=== PATIENT | male | born 1970 | race Caucasian/White ===

== ENCOUNTER 2019-05-29 01:17 | Outpatient (CLI) | payer BC, SELFPAY ==
--- NOTE | 2019-05-29 07:00 | DI.NM_ITS ---
APPROVED REPORT Exam: Exercise Treadmill Patient Location: Out-Patient Room/Bed: Stress Nurse: Felicia Rosenthal RN BMI: 29.53 Baseline Rhythm: Sinus Bradycardia Indications: Patient reports within the past year he has had 2 episodes of chest tightness (lasted ap proximately 10 ??? 15 minutes and went away with rest) associated with lightheadedness. He states the chest tightness feels like a ???belt around ribs and someone pulled on it???. ???Every once in a whi le I feel angina like symptoms???. Medical History Medical History: Anxiety, Depression Cardiac Medications: Aspirin Allergies: Procaine, Animal Dander Cardiac Risk Factors: FHX of CAD, Hyperlipidemia, Asthma Previous Cardiac Procedures: None Pretest Chest Pain Characteristics: None Exercise History: Physically active Physical Disabilities: None Lung Sounds: Clear to auscultation Heart Sounds: Regular Stress Test Details Test: Exercise stress testing was performed using a Devang protocol. Nuclear Acquisition: Stress Tc-99m/Stress Tc-99m 1 day Rest Isotope: Tc-99m Sestamibi. Dose: 10.9 Date: 05/29/2019 Injection Time: 0845 Stress Isotope: Tc-99m Sestamibi. Dose: 32.8 Date: 05/29/2019 Injection Time: 1020 HR Resting HR Supine: 57 bpm Max Heart Rate (APMHR): 171 bpm Resting HR Standin bpm Target HR (85% APMHR): 145 bpm Max HR Achieved: 154 bpm % of APMHR: 90 HR response to stress: Normal HR response to stress BP Resting BP Supine: 138/90 mmHg Resting BP Standin/90 mmHg Max BP: 180/100 mmHg BP response to stress: Normal blood pressure response to stress. ECG Resting ECG: Sinus Bradycardia Stress ECG: Sinus Tachycardia ST Change: No significant ST segment changes noted. Arrhythmia: None Recovery ECG: Sinus Rhythm Recovery ST Change: No significant ST segment changes noted. Recovery Arrhythmia: None Clinical Reason for Termination: Fatigue Stress Symptoms: None Exercise duration: 12 min5 sec Highest Stage Reached: Stage 4: 4.2 mph at 16% grade. Exercise capacity: 13.53 METs Functional Capacity: Average Capacity Stress ECG Conclusion 1. The patient exercised for 12 minutes (14 METS). Exercise was stopped due to fatigue. Rate-pressu re product was 27,000. 2. There is no evidence of ischemia on the ECG portion of this exam. Protocol Used: Devang Protocol Stress Test Summary STAGE Time (mins) Speed (mph) Grade (%) HR BP SYMPTOMS METS Supine 57 138/90 Standing 66 130/90 1 3 1.7 10 94 134/78 4.6 2 6 2.5 12 111 130/80 7 3 9 3.4 14 122 150/90 10.2 4 12 4.2 16 154 180/100 12.9 5 15 5.0 18 17.2 1 min recovery 103 140/90 3 min recovery 83 146/90 6 min recovery 77 140/90 MPI Conclusion Ejection fraction was 43%. There were no wall motion abnormalities. There is no evidence of ischemia on the imaging portion of this exam. This represents a normal SPECT imaging test.
[2019-05-29 12:43] LABS: HCT 43.9 % (40.0-50.0); HGB 14.7 g/dL (13.5-17.5); Mean Corp. HGB Concentration 33.5 g/dL (32.0-36.0); Mean Corpuscular Hemoglobin 29.5 pg (27.0-33.0); Mean Corpuscular Volume 88.2 fL (80-95); Mean Platelet Volume 9.7 fL (8.0-11.0); Platelet Count 284 x1000/uL (130-400); RBC 4.98 m/cumm (4.50-6.00); RBC Distribution Width 12.9 % (11.8-14.1); White Blood Cell Count 6.19 k/cumm (4.4-10.8)
[2019-05-29 13:48] LABS: ALT 33 U/L (16-63); AST 16 U/L (15-37); Albumin 4.1 g/dL (3.4-5.0); Alkaline Phosphatase 56 U/L (46-116); Anion Gap 7.6 mmol/L (3-11); BUN 13 mg/dL (7-18); Bilirubin, Total 0.4 mg/dL (0.2-1.0); CO2 28.4 mmol/L (21.0-32.0); CREATININE 0.84 mg/dL (0.70-1.30); Calcium 9.6 mg/dL (8.5-10.1); Calculated LDL 169 mg/dL (<100); Chloride 104 mmol/L (98-107); Cholesterol 231 mg/dL (<200); Glucose 92 mg/dL (74-106); HDL Cholesterol 40 mg/dL (40-60); Potassium 4.7 mmol/L (3.5-5.1); Sodium 140 mmol/L (136-145); TSH (W/Ref FT4) 1.19 uIU/mL (0.36-3.74); Total Protein 7.4 g/dL (6.4-8.2); Triglyceride 113 mg/dL (<150)
== END 2019-05-29 01:37 ==
PROVIDERS: PCP Family Medicine; Visit Provider Family Medicine
DX: R07.89 Other chest pain (principal); R07.2 Precordial pain; E78.5 Hyperlipidemia, unspecified; F41.8 Other specified anxiety disorders; G47.00 Insomnia, unspecified; Z82.49 Family history of ischemic heart disease and other diseases of the circulatory system
CPT/HCPCS: 36415; 78452; 80053; 80061; 85027; 84443; 93017

== ENCOUNTER 2020-06-03 10:14 | Day surgery (SDC) | payer BC, SELFPAY ==
--- NOTE | 2020-06-03 06:41 | W.COLOREPORT ---
Date of service: 06/03/20 Time of Service: 11:48 Colonoscopy Report Date of procedure: 06/03/20 Pre-op diagnosis general: Colon Cancer Screening Post-op diagnosis procedure note: other (colorectal polyps and mild diverticulosis) Procedure: Colonoscopy with polypectomy Surgeon: Cathy Roth Anesthesia proc note operative: other (General/ASA 2/Eh Parrish, OLIVER) Estimated blood loss (mL): 3 Pathology: other (cecal polyp, ascending polyp. Transverse polyp) Complications: None Disposition: same day Indications: The patient is here for Colonoscopy pre-op. He has no family history of colon cancer. He has not had any bowel habit changes. -Discussed colonoscopy bowel prep as well as the procedure. Discussed possible complications of the procedure to include bleeding, pain, perforation, missed small lesion/polyp, sore throat, aspiration and adverse reaction to the medications. Questions were answered to patient?s satisfaction. No guarantees were implied or given. Prep: Miralax/Dulcolax Procedure Start Time: 11:48 Procedure End Time: 12:11 Retraction Time: 16 minutes Findings: 3 small polyps Procedure Description: After informed consent was obtained the patient was taken to the procedure room and placed in a left decubitous position. Monitors were applied and a time out was done. The patients name, date of , procedure, allergies to medications and metal in their body was reviewed. The patient was then sedated. Once sedated and comfortable a rectal exam was done. External exam was normal. Internal exam revealed a normal sphincter tone and no palpable masses. The prostate felt smooth. The scope was then introduced and retro-flexed. No internal hemorrhoids, polyps or masses were identified on retro-flexion. The scope was then advanced to the cecum without difficulty. The ileocecal vlave and appendiceal orifice were identified. The prep was adequate. The scope was then slowly retracted over 16 minutes back into the rectum. Polyps were removed with cold forceps in the cecum, ascending and transverse colon. There was mild diverticulosis noted in the sigmoid colon. The scope was removed and the patient was woken up and taken back to Same day surgery in stable condition. The patient tolerated the procedure well and there were no immediate complications. Follow up: The patient should follow up in 3-5 years unless they develop changes in bowel habits or other new gastrointestinal complaints.
--- NOTE | 2020-06-03 06:42 | W.PM.DSUDISC ---
Discharge Plan Disposition Patient Disposition: HOME Condition: Good Discharge Details Reason For Visit: Colonoscopy Attending Provider: Cathy Roth Primary Care Provider: Matthew Duggan Home Meds and New Rx's Prescriptions: Continued Advil PM Liqui-Gels 200-25 mg capsule 1 cap PO QHS RF: 0 sildenafil [Viagra] 50 mg tablet 50 mg PO DAILY PRN (Reason: sexual activity) Qty: 20 RF: 5 albuterol sulfate [Ventolin HFA] 90 mcg/actuation HFA aerosol inhaler 2 puff IH Q4H PRN (Reason: shortness of breath or wheezing) Qty: 8.5 RF: 0 (DME) Aerochamber MV Spacer See Rx Instructions .ROUTE .MEDSUPPLY Qty: 1 RF: 0 Discontinued polyethylene glycol 3350 17 gram/dose powder 238 g PO ONCE Qty: 238 RF: 0 bisacodyl [Dulcolax (bisacodyl)] 5 mg tablet,delayed release (DR/EC) 5 mg PO ONCE Qty: 4 RF: 0 No Action diphenhydramine-acetaminophen [Tylenol PM Extra Strength] 25-500 mg Tablet 1 tab PO QHS PRNRF: 0 Discharge Instructions Instructions: Colorectal Polyps (DC), Diverticulosis (DC) Additional Instructions: Findings: 3 small polyps mild diverticulosis Follow up: depends on final pathology Please call if you develop: fevers >101.5 Nausea or Vomiting Abdominal pain that is not transient DAY SURGERY UNIT POST ENDOSCOPY INSTRUCTIONS 1. Because there will be medication in your system for the next 24 hours, you may feel a little sleepy. Your coordination will be affected. Therefore: a. Do not drive or operate dangerous equipment for 24 hours. b. Do not drink alcohol beverages for 24 hours (not even beer). c. Plan to go home and rest for the day. 2. Generally there are no restrictions on your activity after a day or so has gone by, but you may feel a bit fatigued for a few days. 3 After you arrive home you may have a light meal and return to a normal diet as you can tolerate it without feeling sick to your stomach. 4. After surgery, you may feel pain or discomfort. This should be only transient, but if it persists please contact your doctor. 5. If there are any questions regarding the findings of your procedure, please feel free to contact your doctor. 6. If you are unable to contact your doctor with a problem, contact the hospital at [phone]. 7. Continue all your regular medications unless directed otherwise. I understand the above instructions and have no questions. Signature of Patient or Responsible Adult Escort Date/Time Name of Responsible Adult Escort Signature of Nurse Date/Time Activity:: Activity as Tolerated Diet:: As Tolerated Discharge Orders Discharge Orders: Discharge Order (Routine); Ordered 06/03/20 Ordered By: Cathy Roth
[2020-06-03 10:35] VITALS: BP 135/93; PULSE 69; RESP 18; TEMP 36.6; O2SAT 98
[2020-06-03] MEDS: Lactated Ringers 1,000 ML 80 ML IV (10:55)
--- NOTE | 2020-06-03 11:54 | BOWEL_PTH ---
PATIENT: Ernie Perez LOC: [facility] U#:[id number] AGE/SX: 49/M ROOM: RE06/03/[address]: Cathy Roth MD : [id number] BED: DIS: 06/03/2020 SPEC #: [id number] RECD: 06/03/20 17:16 STATUS: RIGOBERTO REQ #: [id number] ADAMA: 06/03/20 11:[address]: Cathy Roth DEPT: Surgical Specimen RECD BY: Ivette Christianson ENTERED: 06/03/20 17:16 SP TYPE: Bowel OTHR DR: Matthew Duggan MD Tissues: 1 - BIOPSY BOWEL 2 - BIOPSY BOWEL 3 - BIOPSY BOWEL Procedures: GROSS AND MICRO LEVEL 4 Comments: [id number]
[2020-06-03 13:00] VITALS: BP 129/93; PULSE 66; RESP 16; TEMP 36.4; O2SAT 98
== END 2020-06-03 13:26 | disposition home or self-care (01) ==
LOC: SUR 10:14
PROVIDERS: PCP Family Medicine; Visit Provider Surgery
PROC: 0DJD8ZZ Inspection of Lower Intestinal Tract, Via Natural or Artificial Opening Endoscopic (ICD-10-PCS; CPT 45378; principal; 2020-06-03 10:45)
DX: Z12.11 Encounter for screening for malignant neoplasm of colon (principal); D12.2 Benign neoplasm of ascending colon; D12.3 Benign neoplasm of transverse colon; F41.9 Anxiety disorder, unspecified; J45.909 Unspecified asthma, uncomplicated
CPT/HCPCS: 45380; 88305; J2001; J2704

== ENCOUNTER 2020-11-11 15:32 | Outpatient (CLI) | payer BC, SELFPAY ==
--- NOTE | 2020-11-11 14:00 | DI.RAD_ITS ---
Exam(s) XR KNEE LT 4V AP,LAT,YAHAIRA,PAT EXAM: XR KNEE LT 4V AP,LAT,YAHAIRA,PAT CLINICAL HISTORY: bilateral knee pain. TECHNIQUE: 2D digital imaging was performed. COMPARISON: CR XR KNEE RT 4V AP,LAT,YAHAIRA,PAT from 11/11/2020 FINDINGS: No evidence of left knee joint fracture although there does appear to be a joint effusion. Prominent inferior pole the patella is noted as is calcification at the insertion site of the quadriceps tendo n on the anterosuperior patella. There are no obvious degenerative changes in the medial and lateral compartments nor in the patellofe moral compartment. Fabella is noted posterolaterally and a small benign bone island in the anterior tibial plateau. IMPRESSION: No obvious degenerative changes. Small joint effusion. DATA REPOSITORY: RADIATION DOSE DELIVERED:
--- NOTE | 2020-11-11 14:00 | DI.RAD_ITS ---
Exam(s) XR KNEE RT 4V AP,LAT,YAHAIRA,PAT EXAM: XR KNEE RT 4V AP,LAT,YAHAIRA,PAT CLINICAL HISTORY: bilateral knee pain. TECHNIQUE: 2D digital imaging was performed. COMPARISON: No exams were available for comparison FINDINGS: There is no evidence fracture. There is small joint effusion. Also calcification at the insertion o f the quadriceps on the anterosuperior patella. Also some prepatellar soft tissue swelling noted. T he medial lateral compartments exhibit normal height. Patellofemoral compartment unremarkable. IMPRESSION: DATA REPOSITORY: RADIATION DOSE DELIVERED:
== END 2020-11-11 15:33 | disposition home or self-care (01) ==
LOC: DIORS 15:32
PROVIDERS: PCP Nurse Practitioner Family; Referring Provider Nurse Practitioner Family; Visit Provider Student in an Organized Health Care Education/Training Program
DX: M25.561 Pain in right knee (principal); M25.562 Pain in left knee; M25.462 Effusion, left knee; M25.461 Effusion, right knee
CPT/HCPCS: 73564

== ENCOUNTER 2020-12-04 01:39 | Outpatient (CLI) | payer BC, SELFPAY ==
--- NOTE | 2020-12-04 10:40 | DI.MRI_ITS ---
Exam(s) MR LOWER JOINT RT WO EXAM: MR LOWER JOINT RT WO CLINICAL HISTORY: RT KNEE PAIN,M25.561 TECHNIQUE: Multiplanar multisequence MRI of the knee was performed. COMPARISON: CR XR KNEE RT 4V AP,LAT,YAHAIRA,PAT from 11/11/2020 CR XR KNEE LT 4V AP,LAT,YAHAIRA,PAT from 11/11/2020 CR XR KNEE RT 4V AP,LAT,YAHAIRA,PAT from 11/11/2020 CR XR KNEE LT 4V AP,LAT,YAHAIRA,PAT from 11/11/2020 FINDINGS: EFFUSION: There is small joint effusion. There is no Torres cyst in the popliteal fossa MARROW:There is no evidence of fracture, bone contusion, nor osteochondral defects.. There are no si gnificant osseous lesions. PATELLOFEMORAL COMPARTMENT: The quadriceps tendon is intact. The patellar ligament is intact. There is a small focal fissure in the retropatellar cartilage over the mid facet level, this not asso ciated with subjacent intraosseous signal abnormality in the posterior patella.There is no intraosseo us signal to suggest recent patellar dislocation. There are no patellar retinacular tears. CRUCIATE LIGAMENTS: The anterior cruciate ligament is intact.The posterior cruciate ligament is intac t. There is a focal fluid collection associated with the superior half of the ACL an adjacent to the mid aspect of the PCL, this measuring 11 millimeters craniocaudal by 8 millimeters AP by 9 millimete rs wide. Consistent with a non septated intra-articular ganglion cyst at this level. MEDIAL COMPARTMENT/MEDIAL MENISCUS: There is a complex tear of the posterior horn of the medial menis cus, predominantly oblique nature and with mild extrusion. The meniscal root appears intact. No buc ket-handle configuration. No obvious tear of the anterior horn.Mild meniscocapsular separation. The re is signal abnormality at the junction of the torn meniscus and MCL. However, there is no high-gra de MCL tear.. There are no chondral defects, osteochondral defects, subarticular marrow edema, nor osteophytes evid ent. MEDIAL COLLATERAL LIGAMENT: As above. LATERAL COMPARTMENT/LATERAL MENISCUS: There is no evidence of lateral meniscal tear.There are no anuja dral defects, osteochondral defects, subarticular marrow edema, nor osteophytes evident. ILIOTIBIAL BAND: Intact LATERAL COLLATERAL LIGAMENT COMPLEX: The fibular collateral ligament is intact. The biceps femoris t endon is intact.Popliteus muscle and tendon are intact. IMPRESSION: 1. Main finding here is a predominantly oblique tear of the posterior horn of the medial meniscus wit h mild outward extrusion and mild meniscocapsular separation. No bucket-handle configuration. The m eniscal root is intact, as does the anterior horn. No prominent degenerative changes in the hyaline cartilage of the medial compartment. No osteochondral defects. 2. There are no tears of the lateral meniscus nor degenerative changes in the lateral compartment 3. There is an 8 x 11 x 9 millimeter fluid collection associated with the upper aspect of the ACL whi ch appears somewhat focal (although intimately related with the generalized joint effusion here). Ho wever, this may represent a para ACL ganglion cyst. There is no obvious tear of the ACL itself and t he PCL appears intact. 4. There is a small focal fissure in the central aspect of the retropatellar cartilage. Otherwise on ly mild cartilage thinning. No abnormal intraosseous signal evident in the subjacent patella. Bqihl-vmqyiwbb-gtzcq joint effusion. DATA REPOSITORY:
== END 2020-12-04 01:59 ==
PROVIDERS: PCP Nurse Practitioner Family; Visit Provider Student in an Organized Health Care Education/Training Program
DX: M25.561 Pain in right knee (principal); M25.461 Effusion, right knee; S83.241A Other tear of medial meniscus, current injury, right knee, initial encounter; M94.8X6 Other specified disorders of cartilage, lower leg
CPT/HCPCS: 73721

== ENCOUNTER 2021-05-27 08:14 | Outpatient (CLI) | payer BC, SELFPAY ==
[2021-05-27 08:44] LABS: Source Nasal/Nares
[2021-05-27 09:23] LABS: COVID-19 PCR Negative (Negative)
== END 2021-05-27 08:15 | disposition home or self-care (01) ==
LOC: LBN 08:15
PROVIDERS: PCP Nurse Practitioner Family; Visit Provider Student in an Organized Health Care Education/Training Program
DX: Z20.822 Contact with and (suspected) exposure to COVID-19 (principal); Z01.818 Encounter for other preprocedural examination
CPT/HCPCS: 87635

== ENCOUNTER 2021-05-27 11:00 | Day surgery (SDC) | payer BC, SELFPAY ==
[2021-05-27] VITALS (8 sets, daily range): BP systolic 116–136; BP diastolic 73–91; PULSE 66–75; RESP 14–19; TEMP 36.2–37; O2SAT 95–97; BMI 32.1
--- NOTE | 2021-05-27 06:23 | W.ANESPRE ---
General Info Date of Service Date Performed: 05/27/21 Height: 5 ft 9 in Weight: 98.883 kg Body Mass Index (BMI): 32.1 Surgical Procedure: Operation Date: 05/27/21 13:40 Proposed Procedure Side Surgeon p Knee Arthroscopy partial medial menisectomy Right Alan Baird MD Meds Allergies and Home Medications Allergies Allergy/AdvReac Type Severity Reaction Status Date / Time procaine [From Novocain] Allergy Mild Verified 05/27/21 11:29 animal dander Allergy Uncoded 05/27/21 11:29 Home Medication Medication Instructions Recorded ibuprofen 200 mg-diphenhydramine 1 cap PO QHS 05/09/19 HCl 25 mg capsule (Advil PM Liqui-Gels) albuterol sulfate 90 mcg/actuation 2 puff IH Q4H PRN #8.5 gm 06/29/19 aerosol inhaler (Ventolin HFA) inhalational spacing device #1 each 06/29/19 (Aerochamber MV) diphenhydramine 25 1 tab PO QHS PRN 06/03/20 mg-acetaminophen 500 mg tablet (Tylenol PM Extra Strength) sildenafil 50 mg tablet (Viagra) 50 mg PO DAILY PRN #20 tab 01/08/21 acetaminophen 500 mg capsule 1,000 mg PO Q8H PRN PRN #30 cap 05/27/21 ibuprofen 600 mg tablet 600 mg PO TID #30 tab 05/27/21 oxycodone 5 mg tablet 5 mg PO Q4H PRN #7 tab 05/27/21 Current Visit Medications: Current Medications Generic Name Dose Route Start Last Admin Trade Name Ramosq PRN Reason Stop Dose Admin Ringer's Solution 1,000 mls @ 80 mls/hr 05/27/21 06:00 IV 06/25/21 23:59 INFUSION SHAHAB Cefazolin Sodium/Dextrose 2 gm in 50 mls @ 100 mls/hr 05/27/21 06:00 Ancef Duplex IVPB 06/25/21 23:59 PREOP SHAHAB IV Miscellaneous Supplies 1 each 05/27/21 06:00 Iv Access IV 06/25/21 23:59 DIRECTED SHAHAB Sodium Chloride 0 ml 05/27/21 06:00 Normal Saline Flush 10 Ml Syr IV 06/25/21 23:59 PRN PRN Sodium Chloride 0 ml 05/27/21 06:00 Normal Saline 10 Ml Vial IJ 06/25/21 23:59 DIRECTED PRN Sterile Water 0 ml 05/27/21 06:00 Water,Injection,Sterile 10 Ml Vial IJ 06/25/21 23:59 DIRECTED PRN PFSH Active Problems Active Problems: Problem Status Onset Code Tendinitis of left quadriceps tendon M76.892 Left knee pain M25.562 Complex tear of medial meniscus of right knee S83.231A Chondromalacia of patella, 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 Knee pain, bilateral M25.561, M25.562 Hyperlipidemia E78.5 Family history of myocardial infarction in first degree male relative Z82.49 H/O retrosternal chest pain Z87.898 Insomnia G47.00 Elevated LDL cholesterol level E78.00 Erectile dysfunction N52.9 Dysplastic nevus Cutaneous skin tags L91.8 Seborrheic keratoses L82.1 Screening for colon cancer Z12.11 Asthma, mild J45.909 Anxiety F41.9 Surgical History Surgical History History of vasectomy Hx of inguinal hernia surgery Tobacco Smoking/Tobacco Use Status: Former Tobacco Use Second hand exposure: No Alcohol Alcohol Intake: current Alcohol intake frequency: a few times a week Alcohol type: beer Substance Use Substance use: Rarely Substance use type: marijuana Details: edible Vital Signs and Lab Results Vital Signs Most Recent Vital Signs in EMR: Temp Pulse Resp BP Pulse Ox 37.0 C 70 18 136/86 97 05/27/21 11:18 05/27/21 11:18 05/27/21 11:18 05/27/21 11:18 05/27/21 11:18 Lab Results Blood Type / Crossmatch: No Data to Display Complete Blood Count: No Data to Display Complete Metabolic Panel: No Data to Display Liver Function Panel: No Data to Display Coagulation Panel: No Data to Display Cardiac Panel: No Data to Display Arterial Blood Gas: No Data to Display Venous Blood Gas: No Data to Display Pancreas Panel: No Data to Display Thyroid Panel: No Data to Display Infectious Disease: Coronavirus (COVID-19)(PCR) Negative (Negative) 05/27/21 08:37 05/27/21 Coronavirus 2019 Source Nasal/Nares 05/27/21 08:37 05/27/21 Blood Cultures: No Data to Display Toxicology Panel: No Data to Display Imaging and Studies Imaging and Studies Study information below may be from another EMR and interpreted by another provider. Please see original notes in EMR for more complete details. Stress Test Summary: 06/15: 14 METS, no evidence of ischemia, EF 43%, no WMA, no perfusion defects. Anesthesia Assessment and Plan Anesthesia History Personal History: No History of Anesthesia Complications Family History: No Family History of Anesthesia Complications Exercise Tolerance Exercise Tolerance: Metabolic Equivalents>4 Cardiac & Pulmonary Exam Cardiac Exam: Normal S1/S2 Heart Sounds Pulmonary Exam: Clear Bilateral Breath Sounds Implantable Cardiac Device Does patient have a Pacemaker or an ICD?: No Airway Exam Known Difficult Airway: No Mallampati Class: 1 Mouth Opening: Normal (> 3cm) Thyromental Distance: Greater than 3 cm Neck Range of Motion: Full ROM Neck Circumference: Normal Teeth Condition: Normal Dentition ASA Classification ASA Score: ASA 2 Emergency Case?: No NPO Status NPO Status: NPO Clears >2 hours, Solids >8 hours Anesthesia Plan Resuscitation Status: Full Code Anesthesia Technique: General Anesthesia Airway Planned: LMA Monitors Used: Standard Monitors Preoperative Comments:: 50 yo male for knee arthroscopy. Sig PMHx: asthma (albuterol), anxiety, former smoker, occ EtOH.
--- NOTE | 2021-05-27 08:38 | HPE_ITS ---
Documented by User: ELIZABETH Ferrara 05/27/21 11:43 Assessment and Plan Assessment and plan (1) Complex tear of medial meniscus of right knee: Status: Acute Assessment and plan: Ernie is a 50 year old male who presents today with continued right knee pain. ? Has undergone MRI imaging and previous office visits with Dr. Baird confirming a complex medial meniscal tear.? Dr Baird in December 2020 recommended arthroscopic partial medial meniscectomy. Xray imaging with minimal arthritic changes. I personally saw the patient in the [facility] waiting area. Denies chest pain, palpitations, SOB, N/V/D, changes in urinary frequency or blood in her urine. Denies history of cardiac events, respiratory events requiring hospitalizations or intubation, renal or liver disorders, hepatitis, diabetes, immunologic or thyroid disorders. Auscultation of the heart: regular rate and rhythm, S1, S2 appreciated without murmurs gallops or rubs. Lungs: Right upper, middle, lower lobes; Left upper, lower lobes; clear to auscultation bilaterally without wheezes, rales or rhonchi. After a review of the presented information and risks the patient was given the opportunity to ask questions, all of which were answered to satisfaction. Ernie elects to proceed. We will plan to proceed with scheduled procedure. Qualifiers: Encounter type: subsequent encounter Tear current or old: current Qualified Code(s): S83.231D - Complex tear of medial meniscus, current injury, right knee, subsequent encounter History of Present Illness History of Present Illness Chief Complaint: Right Knee Pain PFSH All Active Problems Tendinitis of left quadriceps tendon (Acute) Left knee pain (Acute) Complex tear of medial meniscus of right knee (Acute) Chondromalacia of patella, right (Acute) Knee pain, bilateral (Acute) Hyperlipidemia (Acute) Family history of myocardial infarction in first degree male relative (Acute) H/O retrosternal chest pain (Acute) Insomnia (Acute) Elevated LDL cholesterol level (Acute) Erectile dysfunction (Acute) Dysplastic nevus (Acute) Cutaneous skin tags (Acute) Seborrheic keratoses (Acute) Screening for colon cancer (Acute) Asthma, mild (Acute) Anxiety (Chronic) Surgical History History of vasectomy Hx of inguinal hernia surgery Family History Mother No problems noted. Father , age 84 Liver cancer Diabetes Brother Alcohol abuse Heart disease Brother Hypertension Son No problems noted. Son No problems noted. Social History (Updated 06/21/20 @ 14:34 by Sanam Valentin) Smoking/Tobacco Use Status: Former Tobacco Use Quit Date: 03/29/01 Tobacco: How many years used: 5 Second Hand Exposure: No Smoking risk assessment performed?: Yes Alcohol Intake: current Alcohol Intake frequency: a few times a week Alcohol type: beer Drug use: Rarely Substance use type: marijuana Details: edible, last used one week ago. Caregiver/Support person: No Household members: spouse and children Housing: house Pets and animals: Yes Pets and animals: dog(s) Sexually active: Yes Do you think of yourself as: straight/heterosexual Current gender identity: male What is your relationship status?: How often do you talk on the phone with friends or family?: three or more times per week How often do you get together with friends or relatives?: once per week How often do you attend mandaeism or scientologist services?: decline to answer Do you belong to any clubs or organized social groups?: no Panel score (0-1 are the most socially isolated patients): 2 What type of physical activity do you participate in: running Duration: < 15 minutes/day Frequency: 1-2 times per week Loraine/Restorationist: None Special loraine needs: No Seatbelt use: always Helmet use: Yes Helmet use: always Drive intox or ride w/intox ross carrier driver: No Do you feel safe at home: Yes Do you feel safe in your relationship?: Yes Meds Allergies and Home Medications Allergies Allergy/AdvReac Type Severity Reaction Status Date / Time procaine [From Novocain] Allergy Mild Verified 05/27/21 11:29 animal dander Allergy Uncoded 05/27/21 11:29 Home Medications Medication Instructions Recorded Confirmed Type ibuprofen 200 mg-diphenhydramine 1 cap PO QHS 05/09/19 05/27/21 History HCl 25 mg capsule (Advil PM Liqui-Gels) albuterol sulfate 90 mcg/actuation 2 puff IH Q4H PRN #8.5 gm 06/29/19 05/27/21 Rx aerosol inhaler (Ventolin HFA) inhalational spacing device #1 each 06/29/19 01/13/21 Rx (Aerochamber MV) diphenhydramine 25 1 tab PO QHS PRN 06/03/20 05/27/21 History mg-acetaminophen 500 mg tablet (Tylenol PM Extra Strength) sildenafil 50 mg tablet (Viagra) 50 mg PO DAILY PRN #20 tab 01/08/21 05/27/21 Rx acetaminophen 500 mg capsule 1,000 mg PO Q8H PRN PRN #30 cap 05/27/21 Rx ibuprofen 600 mg tablet 600 mg PO TID #30 tab 05/27/21 Rx oxycodone 5 mg tablet 5 mg PO Q4H PRN #7 tab 05/27/21 Rx Documented by User: Alan Baird MD 05/27/21 12:41 Assessment and Plan Assessment and plan (1) Complex tear of medial meniscus of right knee: Status: Acute Assessment and plan: Ernie is a 50 year old male who presents today with continued right knee pain. ? Has undergone MRI imaging and previous office visits with Dr. Baird confirming a complex medial meniscal tear.? Dr Baird in December 2020 recommended arthroscopic partial medial meniscectomy. Xray imaging with minimal arthritic changes. I personally saw the patient in the [facility] waiting area. Denies chest pain, palpitations, SOB, N/V/D, changes in urinary frequency or blood in her urine. Denies history of cardiac events, respiratory events requiring hospitalizations or intubation, renal or liver disorders, hepatitis, diabetes, immunologic or thyroid disorders. Auscultation of the heart: regular rate and rhythm, S1, S2 appreciated without murmurs gallops or rubs. Lungs: Right upper, middle, lower lobes; Left upper, lower lobes; clear to auscultation bilaterally without wheezes, rales or rhonchi. After a review of the presented information and risks the patient was given the opportunity to ask questions, all of which were answered to satisfaction. Ernie elects to proceed. We will plan to proceed with scheduled procedure. I interviewed and examined the patient with Kenna Shen PA-C. I agree with the documentation as above. The assessment and plan were formulated with my direct involvement. Ernie has a known medial meniscal tear of his right knee. He has failed nonoperative treatment options and is here today for knee arthroscopy with meniscal intervention. I reviewed the risk of the surgery with him to include bleeding, infection, pain, stiffness, damage to nerves and vessels, damage to muscle tendons, continued pain, worsening arthritis, retear, blood clot. Despite these risk, he elects to proceed. Alan Baird MD [facility]OS [facility] Qualifiers: Encounter type: subsequent encounter Tear current or old: current Qualified Code(s): S83.231D - Complex tear of medial meniscus, current injury, right knee, subsequent encounter [facility] All Active Problems Tendinitis of left quadriceps tendon (Acute) Left knee pain (Acute) Complex tear of medial meniscus of right knee (Acute) Chondromalacia of patella, right (Acute) Knee pain, bilateral (Acute) Hyperlipidemia (Acute) Family history of myocardial infarction in first degree male relative (Acute) H/O retrosternal chest pain (Acute) Insomnia (Acute) Elevated LDL cholesterol level (Acute) Erectile dysfunction (Acute) Dysplastic nevus (Acute) Cutaneous skin tags (Acute) Seborrheic keratoses (Acute) Screening for colon cancer (Acute) Asthma, mild (Acute) Anxiety (Chronic) Surgical History History of vasectomy Hx of inguinal hernia surgery Family History Mother No problems noted. Father , age 84 Liver cancer Diabetes Brother Alcohol abuse Heart disease Brother Hypertension Son No problems noted. Son No problems noted. Social History (Updated 06/21/20 @ 14:34 by Sanam Valentin) Smoking/Tobacco Use Status: Former Tobacco Use Quit Date: 03/29/01 Tobacco: How many years used: 5 Second Hand Exposure: No Smoking risk assessment performed?: Yes Alcohol Intake: current Alcohol Intake frequency: a few times a week Alcohol type: beer Drug use: Rarely Substance use type: marijuana Details: edible, last used one week ago. Caregiver/Support person: No Household members: spouse and children Housing: house Pets and animals: Yes Pets and animals: dog(s) Sexually active: Yes Do you think of yourself as: straight/heterosexual Current gender identity: male What is your relationship status?: How often do you talk on the phone with friends or family?: three or more times per week How often do you get together with friends or relatives?: once per week How often do you attend mandaeism or scientologist services?: decline to answer Do you belong to any clubs or organized social groups?: no Panel score (0-1 are the most socially isolated patients): 2 What type of physical activity do you participate in: running Duration: < 15 minutes/day Frequency: 1-2 times per week Loraine/Restorationist: None Special loraine needs: No Seatbelt use: always Helmet use: Yes Helmet use: always Drive intox or ride w/intox ross carrier driver: No Do you feel safe at home: Yes Do you feel safe in your relationship?: Yes Meds Allergies and Home Medications Allergies Allergy/AdvReac Type Severity Reaction Status Date / Time procaine [From Novocain] Allergy Mild Verified 05/27/21 11:29 animal dander Allergy Uncoded 05/27/21 11:29 Home Medications Medication Instructions Recorded Confirmed Type ibuprofen 200 mg-diphenhydramine 1 cap PO QHS 05/09/19 05/27/21 History HCl 25 mg capsule (Advil PM Liqui-Gels) albuterol sulfate 90 mcg/actuation 2 puff IH Q4H PRN #8.5 gm 06/29/19 05/27/21 Rx aerosol inhaler (Ventolin HFA) inhalational spacing device #1 each 06/29/19 01/13/21 Rx (Aerochamber MV) diphenhydramine 25 1 tab PO QHS PRN 06/03/20 05/27/21 History mg-acetaminophen 500 mg tablet (Tylenol PM Extra Strength) sildenafil 50 mg tablet (Viagra) 50 mg PO DAILY PRN #20 tab 01/08/21 05/27/21 Rx acetaminophen 500 mg capsule 1,000 mg PO Q8H PRN PRN #30 cap 05/27/21 Rx ibuprofen 600 mg tablet 600 mg PO TID #30 tab 05/27/21 Rx oxycodone 5 mg tablet 5 mg PO Q4H PRN #7 tab 05/27/21 Rx
--- NOTE | 2021-05-27 08:45 | PDOC.DSDIS_ITS ---
Discharge Plan Disposition Patient Disposition: HOME Condition: Stable Discharge Details Reason For Visit: Right Knee Arthroscopy Attending Provider: Alan Baird Primary Care Provider: Car Garcia Home Meds and New Rx's Prescriptions: New ibuprofen 600 mg tablet 600 mg PO TID Qty: 30 0RF acetaminophen 500 mg capsule 1,000 mg PO Q8H PRN PRNQty: 30 0RF oxycodone 5 mg tablet 5 mg PO Q4H PRNQty: 7 0RF Continued Advil PM Liqui-Gels 200-25 mg capsule 1 cap PO QHS 0RF albuterol sulfate [Ventolin HFA] 90 mcg/actuation HFA aerosol inhaler 2 puff IH Q4H PRN (Reason: shortness of breath or wheezing) Qty: 8.5 0RF (DME) Aerochamber MV Spacer See Rx Instructions .ROUTE .MEDSUPPLY Qty: 1 0RF Rx Instructions: As directed sildenafil [Viagra] 50 mg tablet 50 mg PO DAILY PRN (Reason: sexual activity) Qty: 20 5RF Rx Instructions: administer 30 minutes to 4 hours before activity diphenhydramine-acetaminophen [Tylenol PM Extra Strength] 25-500 mg Tablet 1 tab PO QHS PRN0RF Discharge Instructions Stand Alone Forms: [facility] Knee Arthroscopy Referrals: Alan Baird MD [ [facility] STAFF PHYSICIAN] - Equipment/Supplies: Partial Weight Bearing Crutches Activity:: Activity as Tolerated Remove Dressings/Wound Care:: 72 hours Shower/Bathe:: 72 hours Diet:: As Tolerated Discharge Orders Discharge Orders: Discharge Order (Routine); Ordered 05/27/21 Ordered By: Krista Shen DS: Diagnosis Discharge Diagnosis (1) Complex tear of medial meniscus of right knee: Status: Acute
[2021-05-27] MEDS: Lactated Ringers 1,000 ML 80 ML IV (11:44)
[2021-05-27] MEDS: ceFAZolin 2 GM/50 ML BAG IVPB (12:41)
[2021-05-27] MEDS: Bupivacaine 0.5% Pres-Free 30 ML VIAL (13:27)
--- NOTE | 2021-05-27 14:01 | W.ANESPOSTOP ---
Postoperative Evaluation Date, Time and Location Date Performed: 05/27/21 Time Performed: 14:01 Patient Location: PACU Vital Signs Most Recent Imported Vital Signs: Most Recent Vital Signs Temp Pulse Resp BP Pulse Ox 36.3 C L 68 18 116/73 97 05/27/21 13:40 05/27/21 13:55 05/27/21 13:55 05/27/21 13:55 05/27/21 13:55 Pain Score Most Recent Pain Score: Most Recent Pain Score Pain Level 2 05/27/21 13:55 Assessment Mental Status: Awake (Alert & Oriented to Patient Baseline) Airway and Respiratory Function: Patent airway with normal (patient baseline) respiratory exam Cardiovascular Function: Hemodynamically Stable Hydration Status: Adequately Hydrated Nausea & Vomiting: No Nausea or Vomiting Pain: Pain is tolerable per patient Peripheral Nerve Block: Patient did not receive a nerve block
[2021-05-27] MEDS: Acetaminophen 325 MG TAB 650 MG PO (14:12)
[2021-05-27] MEDS: oxyCODONE 5 MG TAB PO (14:13)
--- NOTE | 2021-05-27 16:14 | W.PM.OP ---
Date of service: 05/27/21 Time of Service: 13:30 Operative Note Operative Note DATE OF PROCEDURE: 05/27/21 PRE-OP DIAGNOSIS: Right Knee Medial Meniscus Tear POST-OP DIAGNOSIS: same PROCEDURE: Right Knee Arthroscopic Partial Medial Menisectomy SURGEON: Alan Baird Refer to Anesthesia Record ESTIMATED BLOOD LOSS: 0 PATHOLOGY: none sent COMPLICATIONS: None Patient was transported to: PACU Patient's condition: stable Indications: I have seen Ernie in clinic for symptoms of a meniscus tear. This was confirmed based on MRI and exam findings. Nonoperative measures were exhausted but disability and pain persisted. I discussed knee arthroscopy with meniscal intervention with the patient. I reviewed the risks of the procedure to include, but not limited to, bleeding, infection, pain, stiffness, damage to nerves or vessels, recurrence, blood clot. Despite these risks, the patient elected to proceed. Findings: A diagnostic arthroscopy was performed with the following findings: Suprapatellar Pouch: Mild, diffuse inflammation, No loose bodies Medial Compartment: Complex medial meniscal tear, Partially torn posterior meniscal root, Grade II chondromalacia over the majority of the distal femur and a portion of the medial tibia, No loose bodies Notch: ACL and PCL were intact Lateral Compartment: No meniscal tear, Intact meniscal root, Grade I chondromalacia of the tibia, No loose bodies Patellofemoral Compartment: Grade I chondromalacia of the patella, No apparent patellar maltracking Procedure Description: Ernie was greeted in the preoperative holding area where the correct side was identified and marked. The consent was reviewed with the patient and signed. The history and physical was updated. All questions were answered. He was taken back to the operating room. The patient was placed into the supine position on the operating room table. A nonsterile tourniquet was placed high onto the leg but not used. All bony prominences were well padded. Prophylactic antibiotics in the form of Cefazolin were administered. The right leg was then prepped with Chloraprep and draped in a standard fashion with stockinette and extremity drape. A timeout to confirm correct identity, side and site, procedure, allergies, anesthesia, and medical concerns was performed. The leg was placed into a pneumatic leg edmondson, [id number]. A standard lateral portal was made at the lateral border of the patella tendon in line with the inferior pole of the patella, soft spot. The skin and deep tissue was incised sharply and the blunt trochar was inserted atraumatically. A diagnostic arthroscopy was performed and the findings are listed above. The suprapatellar pouch had mild diffuse inflammatory changes. The patellofemoral articulation showed generalized fraying of the patellar cartilage surface with good tracking. The lateral gutter had no loose bodies and the medial gutter had no loose bodies. The knee was brought into some valgus stress in extension to open the medial compartment. A medial portal was made, localized by a spinal needle. The portal was created with an #11 blade through skin and capsule under direct visualization avoiding any meniscal injury. A probe was then inserted into the medial compartment. The medial compartment was fully inspected. The chondral surface of the tibia showed very minimal Grade I/II chondromalacia over the posterior-medial aspect and the surface of the femur showed more diffuse Grade II chondromalacia but no full thickness cartilage loss. The medial meniscus had a complex tear involving the posterior horn. There was a radial component in the horn that did not go all the way to the periphery. There was also a subtle horizontal component moving into the body of the meniscus. The meniscal tissue between the radial tear in the horn and the root was poor and there was complex tearing in this region as well. The posterior root attachment appeared to have a partial tear but there were still fibers anchored to the tibia. After evaluation, the meniscus was debrided down to a stable base using a series of biters and arthroscopic adalberto. It was probed afterwards to confirm that the tear had been removed and the meniscus was stable. This was probed multiple times to ensure any tears and loose pieces were removed. The notch was then inspected which showed an intact ACL and an intact PCL. The leg was then brought into a figure of 4 position. The lateral compartment was fully inspected with the arthroscope and a probe. The chondral surface of the lateral femur showed no significant chondromalacia. The chondral surface of the lateral tibia showed mild Grade I chondromalacia. The lateral meniscus had no meniscal tear. The arthroscope was brought back into the suprapatellar pouch and the leg was in full extension. The knee was thoroughly irrigated with the arthroscopic fluid on high flow and pressure. Inflow was stopped and excess fluid was removed. The wounds were closed with 4-0 Nylon. They were dressed with Xeroform, 4x4 gauze, ABD pad, Kerlix and an APRIL wrap. A cryo-cuff was applied. The patient tolerated the procedure well and was returned to the Same Day Surgery area in a stable condition suffering no known complication.
== END 2021-05-27 15:15 | disposition home or self-care (01) ==
LOC: SUR 11:00
PROVIDERS: PCP Nurse Practitioner Family; Visit Provider Student in an Organized Health Care Education/Training Program
PROC: (CPT 29870; principal; 2021-05-27 13:30)
DX: S83.231A Complex tear of medial meniscus, current injury, right knee, initial encounter (principal); M94.261 Chondromalacia, right knee; E78.5 Hyperlipidemia, unspecified; G47.00 Insomnia, unspecified; F41.9 Anxiety disorder, unspecified; X58.XXXA Exposure to other specified factors, initial encounter
CPT/HCPCS: 29881; J0690; J1100; J1885; J2001; J2405

== ENCOUNTER 2021-11-25 03:34 | Outpatient (CLI) | payer BC, SELFPAY ==
[2021-11-25 13:02] LABS: Calculated LDL 163 mg/dL (<100); Cholesterol 230 mg/dL (<200); HDL Cholesterol 40 mg/dL (40-60); Triglyceride 137 mg/dL (<150)
== END 2021-11-25 03:35 | disposition home or self-care (01) ==
LOC: LOS 03:35
PROVIDERS: PCP Family Medicine; Visit Provider Family Medicine
DX: E78.5 Hyperlipidemia, unspecified (principal)
CPT/HCPCS: 36415; 80061

== ENCOUNTER 2022-02-11 09:51 | Outpatient (CLI) | payer BC, SELFPAY ==
--- NOTE | 2022-02-11 09:43 | DI.RAD_ITS ---
Exam(s) XR SHOULDER RT COMPLETE 2+V EXAM: XR SHOULDER RT COMPLETE 2+V CLINICAL HISTORY: RIGHT SHOULDER PAIN. TECHNIQUE: 2D digital imaging was performed. AP and scapular Y views. COMPARISON: No exams were available for comparison FINDINGS: BONES: No acute fracture is present. No bony destructive lesion is seen. JOINTS: No dislocation present. Minimal spurring AC joint and glenoid. Glenohumeral joint space is not narrowed. SOFT TISSUE: Normal. IMPRESSION: Mild degenerative changes. DATA REPOSITORY: RADIATION DOSE DELIVERED:
== END 2022-02-11 09:52 | disposition home or self-care (01) ==
LOC: DIORS 09:51
PROVIDERS: PCP Family Medicine; Referring Provider Family Medicine; Visit Provider Student in an Organized Health Care Education/Training Program
DX: M19.011 Primary osteoarthritis, right shoulder (principal)
CPT/HCPCS: 73030

== ENCOUNTER → 2022-11-13 17:13 | Outpatient (CLI) | payer BC, SELFPAY ==
--- NOTE | 2022-11-13 | DI.CT_ITS ---
Exam(s) CT ABDOMEN PELVIS W EXAM: CT ABDOMEN PELVIS W CLINICAL HISTORY: ABD PAIN, R10.9,BRIGHT RED BLOOD RECTUM,K62.5. TECHNIQUE: Imaging Protocol: Axial computed tomography images with coronal and sagittal reformatted images were created and reviewed CONTRAST MATERIAL: Intravenous: Omnipaque-350 100cc Oral: Yes. Oral contrast was also administered for bowel opacification. COMPARISON: CT ABD PELVIS WITH CONTRAST from 07/04/2017 FINDINGS: VISUALIZED LUNG BASES: No nodules nor pleural effusions evident. ABDOMEN: There is no ascites. LIVER: There are no focal hepatic lesions evident. No dilated intrahepatic ducts. GALLBLADDER/BILIARY: No obvious gallbladder pathology. CBD is not dilated. PANCREAS: No evidence of pancreatic mass nor dilatation of the pancreatic duct. SPLEEN: Spleen is not enlarged. No obvious intrasplenic lesions. Small benign splenule subjacent to the spleen is unchanged. Splenic and portal veins are patent. ADRENALS: There are no significant adrenal masses. KIDNEYS:No cysts evident. No solid renal masses. No calculi nor hydronephrosis.. ABDOMINAL AORTA: Abdominal aorta is not enlarged. LYMPH NODES:There is no retroperitoneal nor paraaortic adenopathy. ABDOMINAL WALL: No evidence of significant anterior abdominal wall nor inguinal hernia. GI: There is no evidence of bowel obstruction, free air, nor abscess. PELVIS: GI: No evidence of appendicitis.No evidence of sigmoid diverticulitis.No obvious colitis pattern. LYMPH NODES: There is no intrapelvic nor inguinal adenopathy. REPRODUCTIVE: Prostate size normal. Seminal vesicles unremarkable. URINARY BLADDER: No calculi nor obvious masses evident OSSEOUS: No fractures and no significant osseous lesions. IMPRESSION: There are no acute findings in the abdomen pelvis. There is no evidence of appendicitis nor divertic ulitis and no obvious colitis pattern. No evidence of bowel obstruction and no ascites. RADIATION DOSE DELIVERED: 1,000.4mGy.cm Total DLP DATA REPOSITORY: All CT scans at this facility are submitted to the National Radiology Data Registry (NRDR) Dose Index Registry (DIR) with the [employer] (A[employer]). RADIATION OPTIMIZATION: All CT scans at this facility use at least one of these dose optimization te chniques: automated exposure control; mA and/or kV adjustment per patient size (includes targeted exa ms where dose is matched to clinical indication); or iterative reconstruction.
[2022-11-13 11:21] LABS: Abs Immature Grans 0.02 10^3/uL (0.0-0.06); Absolute Basophil Count 0.04 10^3/uL (0.0-0.2); Absolute Eosinophil Count 0.15 10^3/uL (0.0-0.7); Absolute Lymphocyte Count 2.82 10^3/uL (1.2-3.4); Absolute Monocyte Count 0.67 10^3/uL (0.1-0.8); Basophils % 0.6; Eosinophils % 2.1; HCT 44.7 % (40.0-50.0); HGB 15.2 g/dL (13.5-17.5); Immature Grans % 0.3; Lymphocytes % 39.7; MCH 29.2 pg (27.0-33.0); MCV 86 fL (80-95); MPV 9.3 fL (8.0-11.0); Monocytes % 9.4; Neutrophils % 47.9; Platelet Count 268 10^3/uL (130-400); RDW 12.2 % (11.8-14.1); RDW-SD 38.6 fL
[2022-11-13 11:36] LABS: ALT 43 U/L (16-63); AST 19 U/L (15-37); Albumin 4.1 g/dL (3.4-5.0); Alkaline Phosphatase 56 U/L (46-116); Anion Gap 8.8 mmol/L (3-11); BUN 14 mg/dL (7-18); Bilirubin, Total 0.4 mg/dL (0.2-1.0); CO2 26.2 mmol/L (21.0-32.0); CREATININE 0.9 mg/dL (0.70-1.30); Calcium 9.7 mg/dL (8.5-10.1); Chloride 105 mmol/L (98-107); Estimated GFR 102.76 (mL/min/1.73m2); Glucose 91 mg/dL (74-106); Potassium 4.1 mmol/L (3.5-5.1); Sodium 140 mmol/L (136-145); Total Protein 7.9 g/dL (6.4-8.2)
[2022-11-13] MEDS: Normal Saline - Diluent 50 ML VIAL IJ (13:34)
[2022-11-13] MEDS: Omnipaque 350 MG/ML 500 ML BTL-Imaging package IJ (13:35)
== END ==
PROVIDERS: PCP Family Medicine; Visit Provider Physician Assistant Medical
DX: R10.9 Unspecified abdominal pain (principal); K62.5 Hemorrhage of anus and rectum
CPT/HCPCS: 36415; 80053; 74177; 85025

== ENCOUNTER 2023-06-08 11:36 | Outpatient (CLI) | payer BC, SELFPAY ==
--- NOTE | 2023-06-08 11:30 | RT.EKG_ITS ---
APPROVED REPORT Exam: Resting ECG Reason for Exam: SOB Patient Location: O HR:66 bpm ECG Measurements Heart Rate 66 AXIS MI 167 P 51 QRSd 91 QRS 70 QT 392 T 59 QTc 411 Conclusion Sinus rhythm...normal P axis, V-rate 50- 99 Normal Electrocardiogram
== END 2023-06-08 11:37 | disposition home or self-care (01) ==
LOC: DI.CM 11:36
PROVIDERS: PCP Family Medicine; Visit Provider Family Medicine
DX: R07.9 Chest pain, unspecified (principal)
CPT/HCPCS: 93010

== ENCOUNTER → 2023-06-14 00:41 | Outpatient (CLI) | payer BC, SELFPAY ==
--- NOTE | 2023-06-14 07:30 | DI.NM_ITS ---
APPROVED REPORT Exam: Pharmacologic Patient Location: Out-Patient Room/Bed: Stress Nurse: Kacy Jaramillo Ordering Provider:KEIRA COLLNIS, Contact Number: [phone] BMI: 32.04 Baseline Rhythm: Sinus Rhythm Indications: chest pain Medical History Medical History: HLD, Asthma, Anxiety, Overweight Cardiac Medications: Amlodipine, Aspirin, Baclofen, Albuterol Sulfate, Sildenafil Allergies: Novocaine Cardiac Risk Factors: Family Hx, Former Smoker, HLD, Asthma Previous Cardiac Procedures: None Pretest Chest Pain Characteristics: None Exercise History: Physically active Physical Disabilities: None Lung Sounds: Clear to auscultation Heart Sounds: Regular Stress Test Details Test: Exercise stress converted to pharmacologic stress due to failure to obtain a diagnostic stress test. Nuclear Acquisition: Rest Tc-99m/Stress Tc-99m 1 day Rest Isotope: Tc-99m Sestamibi. Dose: 10.8 Date: 06/14/2023 Injection Time: 0915 Stress Isotope: Tc-99m Sestamibi. Dose: 32 Date: 06/14/2023 Injection Time: 1030 HR Resting HR Supine: 67 bpm Max Heart Rate (APMHR): 167.667292 bpm Resting HR Standin bpm Target HR (85% APMHR): 141.042597 bpm Max HR Achieved: 121 bpm % of APMHR: 72.46 Recovery HR: 91 bpm HR response to stress: Normal HR response to stress BP Resting BP Supine: 124/88 mmHg Resting BP Standin/92 mmHg Max BP: 142/98 mmHg Recovery BP: 142/92 mmHg BP response to stress: Normal blood pressure response to stress. ECG Resting ECG: Sinus Rhythm Ectopy: None Stress ECG: Sinus Rhythm, Sinus Tachycardia ST Change: No significant ST segment changes noted Arrhythmia: None Recovery ECG: Sinus Rhythm Recovery ST Change: No significant ST segment changes noted Recovery Arrhythmia: None Clinical Reason for Termination: Chest pain/Anginal equivalent Stress Symptoms: Dizziness, chest pressure 3/10 Exercise duration: 8 min09 sec Highest Stage Reached: Stage 3: 3.4 mph at 14% grade. Exercise capacity: 7.9 METs Angina Score: Exercise-Limiting Burns Treadmill Score: -0.5 Rate Pressure Product: 60193 Stress ECG Conclusion 1. Resting electrocardiogram was normal 2. Patient underwent testing using the combination of treadmill exercise and pharmacologic stress wit h regadenoson 3. Peak heart rate achieved was 72% predicted for age 4. Electrocardiographic portion of the test was nondiagnostic 5. See MPI report Burns Treadmill Score is -0.5 which is Moderate risk. Stress Test Summary STAGE Time (mins) Speed (mph) Grade (%) HR BP SpO2 SYMPTOMS METS Supine 67 124/88 Standing 72 128/92 1 3 1.7 10 104 140/90 4.5 2 6 2.5 12 98 Chest pressure 3/10 7 1 min post Lexiscan injection 115 Dizziness 3 min post Lexiscan injection 121 142/98 6 min post Lexiscan injection 91 142/92 Patient experienced chest pressure 3/10 starting at 5:01 exercise. Chest pressure increased by exerci se 6:03 decision made to convert to regadenoson testing as patient's HR was not at target. Regadenoso n given at 7:09 exercise walking 1.0MPH at 0% grade. Patient experienced dizziness and a headache fro m regadenoson. Chest pressure and dizziness resolved by 3:00 recovery. MPI Conclusion Myocardial perfusion is normal. There is no ischemia or evidence of prior infarction EF is 49%, wall motion is normal Radiologist Interpretation Radiologist agrees with Aquatic Director's Interpretation. Radiologist Interpretation by: Edu Garcia MD Interpretation Date/Time: 06/15/2023 08:40:32
[2023-06-14] MEDS: Regadenoson 0.4 MG/5 ML SYR IVP (10:51)
== END ==
PROVIDERS: PCP Family Medicine; Visit Provider Family Medicine
DX: R07.9 Chest pain, unspecified (principal)
CPT/HCPCS: 78452; 93017; J2785

== ENCOUNTER 2023-06-22 08:05 | Outpatient (CLI) | payer BC, SELFPAY ==
--- NOTE | 2023-06-22 08:00 | RT.EKG_ITS ---
APPROVED REPORT Exam: Resting ECG Reason for Exam: chest pain Patient Location: O HR:76 bpm ECG Measurements Heart Rate 76 AXIS [place] 146 P 27 QRSd 93 QRS -1 QT 374 T 19 QTc 421 Conclusion Sinus rhythm...normal P axis, V-rate 50- 99 Normal Electrocardiogram
== END 2023-06-22 08:06 | disposition home or self-care (01) ==
LOC: DI.CARD 08:06
PROVIDERS: PCP Family Medicine; Visit Provider Internal Medicine Cardiovascular Disease
DX: R07.9 Chest pain, unspecified (principal)
CPT/HCPCS: 93010

== ENCOUNTER 2023-06-22 15:17 | Outpatient (CLI) | payer BC, SELFPAY ==
[2023-06-22 15:13] LABS: HCT 45.1 % (40.0-50.0); HGB 15.3 g/dL (13.5-17.5); MCHC 33.9 % (32.0-36.0); MCV 86 fL (80-95); MPV 9.6 fL (8.0-11.0); Platelet Count 267 10^3/uL (130-400); RBC 5.27 10^6/uL (4.36-5.78); RDW 11.9 % (11.8-14.1); RDW-SD 36.9 fL; WBC 7.45 10^3/uL (4.4-10.8)
[2023-06-22 15:23] LABS: PTT Activated 27.6 sec (23.6-32.8); Prothrombin Time 10.2 sec (9.1-11.1)
[2023-06-22 16:20] LABS: Anion Gap 11.9 mmol/L (3-11); BUN 13 mg/dL (7-18); CO2 23.1 mmol/L (21.0-32.0); CREATININE 0.8 mg/dL (0.70-1.30); Calcium 9.8 mg/dL (8.5-10.1); Calculated LDL 142 mg/dL (<100); Chloride 103 mmol/L (98-107); Cholesterol 208 mg/dL (<200); Estimated GFR 105.82 (mL/min/1.73m2); Glucose 87 mg/dL (74-106); HDL Cholesterol 34 mg/dL (40-60); Sodium 138 mmol/L (136-145); Triglyceride 163 mg/dL (<150)
== END 2023-06-22 15:18 | disposition home or self-care (01) ==
LOC: LBO 15:18
PROVIDERS: PCP Family Medicine; Visit Provider Internal Medicine Cardiovascular Disease
DX: I25.10 Atherosclerotic heart disease of native coronary artery without angina pectoris (principal); E78.5 Hyperlipidemia, unspecified
CPT/HCPCS: 36415; 80048; 80061; 85027; 85610; 85730

== ENCOUNTER 2023-06-29 07:34 | Emergency (ER) | payer BC, SELFPAY ==
--- NOTE | 2023-06-29 07:30 | RT.EKG_ITS ---
APPROVED REPORT Exam: Resting ECG Reason for Exam: Chest Pain Patient Location: E HR:63 bpm ECG Measurements Heart Rate 63 AXIS [place] 173 P 33 QRSd 95 QRS 55 QT 393 T 43 QTc 401 Conclusion Sinus rhythm...normal P axis, V-rate 60- 99
[2023-06-29 07:37] VITALS: BP 173/104; PULSE 62; RESP 18; TEMP 36.1; O2SAT 98
--- NOTE | 2023-06-29 07:45 | DI.CT_ITS ---
Exam(s) CT CHEST PE CTA EXAM: CT CHEST PE CTA CLINICAL HISTORY: pleuritic chest pain, dyspnea. TECHNIQUE: Imaging Protocol: CT angiography of the chest was performed using pulmonary embolus cynthia col. Multi planar reconstructions were performed. CONTRAST MATERIAL: Intravenous: Omnipaque 350 Contrast volume: 100 cc COMPARISON: CT CT ABDOMEN PELVIS W from 11/13/2022 CT,NM,TMT NM MPI REST STRESS GRP from 06/14/2023 FINDINGS: CHEST: PULMONARY ARTERIES: There are no intraluminal filling defects to suggest acute pulmonary emboli. LUNGS: There are no infiltrates nor evidence of pulmonary infarction.. There are no pleural effusions . MEDIASTINUM: There is no hilar nor mediastinal adenopathy. Visualized thyroid unremarkable. CARDIAC: Heart size is upper normal. There is no pericardial effusion.Caliber of the thoracic aorta is within normal limits. No evidence of aortic dissection. There is no significant shift of the inte rventricular septum. PARTIALLY VISUALIZED UPPERMOST ABDOMEN: No obvious findings OSSEOUS: No significant osseous lesions.. IMPRESSION: 1. No evidence of acute pulmonary emboli. No evidence of pulmonary infarction.No infiltrates nor ple ural effusions. 2. No evidence of aortic dissection nor pericardial effusion. Called by myself to ER physician RADIATION DOSE DELIVERED: Total DLP DATA REPOSITORY: All CT scans at this facility are submitted to the National Radiology Data Registry (NRDR) Dose Index Registry (DIR) with the [employer] (ACR). RADIATION OPTIMIZATION: All CT scans at this facility use at least one of these dose optimization te chniques: automated exposure control; mA and/or kV adjustment per patient size (includes targeted exa ms where dose is matched to clinical indication); or iterative reconstruction.
[2023-06-29 07:47] VITALS: RESP 16
--- NOTE | 2023-06-29 07:59 | W.ED.GENAD ---
Discharge Plan Disposition Patient Disposition: Home Condition: Stable Discharge Details Clinical Impression: Chest pain Primary Care Provider: Maikel Garces ED Provider: Drerek Rodriguez Home Meds and New Rx's Prescriptions: Continued baclofen 5 mg tablet 5 mg PO TID PRN (Reason: muscle spasm) Qty: 20 0RF aspirin 81 mg tablet,delayed release (DR/EC) 81 mg PO DAILY Qty: 90 3RF amlodipine 5 mg tablet 5 mg PO DAILY Qty: 30 2RF metoprolol succinate 25 mg tablet extended release 24 hr 25 mg PO DAILY Qty: 30 8RF atorvastatin 80 mg tablet 80 mg PO DAILY Qty: 30 8RF (DME) Aerochamber MV Spacer See Rx Instructions .ROUTE .MEDSUPPLY Qty: 1 0RF Rx Instructions: As directed sildenafil [Viagra] 50 mg tablet 50 mg PO DAILY PRN (Reason: sexual activity) Qty: 20 5RF Rx Instructions: administer 30 minutes to 4 hours before activity albuterol sulfate [Ventolin HFA] 90 mcg/actuation HFA aerosol inhaler 2 puff IH Q4H PRN (Reason: shortness of breath or wheezing) Qty: 8.5 0RF ibuprofen 600 mg tablet 600 mg PO TID Qty: 30 0RF acetaminophen 500 mg capsule 1,000 mg PO Q8H PRN PRNQty: 30 0RF Discharge Instructions Additional Instructions: Your EKG, lab work and CAT scan did not show concerning findings at this time Follow-up as scheduled for your cardiac catheterization If you feel more ill or have severe worsening pain or difficulty breathing return to the emergency department for reevaluation HPI General Mode of arrival: ambulatory. Date/Time Provider Initiated Documentation: 06/29/23 07:35. Limitations to Documentation: no limitations. Information obtained by: patient. History of Present Illness 52 year old M presents to the emergency department with the chief complaint of Chest pain, described as moderate, Quality is described as sharp, and is localized to the chest. Patient reports radiation to back. Patient started experiencing this month(s) (2) and it has been intermittent. No relieving factors improve symptom(s), No exacerbating factors reported . Patient notes shortness of breath; denies fever/chills. Patient did receive the following treatments prior to arrival, none Related Data Home Medications Medication Instructions Recorded Confirmed inhalational spacing device #1 ea 06/29/19 06/29/23 (Aerochamber MV spacer) acetaminophen 500 mg capsule 1,000 mg (2 x 500 mg) PO Q8H PRN 05/27/21 06/29/23 PRN #30 caps ibuprofen 600 mg tablet 600 mg PO TID #30 tabs 05/27/21 06/29/23 baclofen 5 mg tablet 5 mg PO TID PRN muscle spasm #20 01/06/23 06/22/23 tabs sildenafil 50 mg tablet (Viagra) 50 mg PO DAILY PRN sexual activity 01/28/23 06/29/23 #20 tabs albuterol sulfate 90 mcg/actuation 2 puff inhalation Q4H PRN 05/25/23 06/29/23 aerosol inhaler (Ventolin HFA) shortness of breath or wheezing #8.5 grams amlodipine 5 mg tablet 5 mg PO DAILY #30 tabs 06/08/23 06/29/23 aspirin 81 mg tablet,delayed 81 mg PO DAILY #90 tabs 06/08/23 06/29/23 release atorvastatin 80 mg tablet 80 mg PO DAILY #30 tabs 06/22/23 06/29/23 metoprolol succinate 25 mg 25 mg PO DAILY #30 tabs 06/22/23 06/29/23 tablet,extended release 24 hr Previous Rx's Medication Instructions Recorded inhalational spacing device #1 ea 06/29/19 (Aerochamber MV spacer) acetaminophen 500 mg capsule 1,000 mg (2 x 500 mg) PO Q8H PRN 05/27/21 PRN #30 caps ibuprofen 600 mg tablet 600 mg PO TID #30 tabs 05/27/21 baclofen 5 mg tablet 5 mg PO TID PRN muscle spasm #20 01/06/23 tabs sildenafil 50 mg tablet (Viagra) 50 mg PO DAILY PRN sexual activity 01/28/23 #20 tabs albuterol sulfate 90 mcg/actuation 2 puff inhalation Q4H PRN 05/25/23 aerosol inhaler (Ventolin HFA) shortness of breath or wheezing #8.5 grams amlodipine 5 mg tablet 5 mg PO DAILY #30 tabs 06/08/23 aspirin 81 mg tablet,delayed 81 mg PO DAILY #90 tabs 06/08/23 release atorvastatin 80 mg tablet 80 mg PO DAILY #30 tabs 06/22/23 metoprolol succinate 25 mg 25 mg PO DAILY #30 tabs 06/22/23 tablet,extended release 24 hr Allergies Allergy/AdvReac Type Severity Reaction Status Date / Time procaine [From Novocain] Allergy Mild Other (See Verified 06/29/23 07:41 Comment) animal dander Allergy Other (See Uncoded 06/29/23 07:41 Comment) General Stated Complaint: Chest Pain DARIA: 3 Review of Systems All systems reviewed & are unremarkable except as noted in HPI and below Constitutional Constitutional: Denies chills, Denies fever(s) and Denies weakness Cardiovascular Cardiovascular: Reports chest pain and Reports dyspnea Respiratory Respiratory: Denies cough and Reports dyspnea Gastrointestinal Gastrointestinal: Denies abdominal pain, Denies nausea and Denies vomiting Integumentary/Breasts Skin/Breast: Denies rash Neurologic Neurologic: Denies weakness Psychiatric Psychiatric: Denies depression Exam Const General: no acute distress Orientation: alert HENMT Head: normal to inspection Ears: external ears normal General nose exam: external nose normal Mouth: moist mucous membranes Eyes General: appearance normal, both eyes and all related structures Neck Neck: normal visual inspection Chest Chest: abnormal inspection of the chest Resp Effort & Inspection: normal respiratory effort and able to speak in complete sentences Auscultation: clear to auscultation bilaterally Cardio Rate: regular rate Heart Sounds: no murmurs Skin General skin exam: no rashes or lesions noted Neuro General: patient alert and patient oriented x3 Extrem General: normal to inspection Psych Mental Status: mental status grossly normal Course Vital Signs Vital signs: Vital Signs Temperature 36.1 C L 06/29/23 07:37 Pulse 62 06/29/23 07:37 Respiratory Rate 18 06/29/23 07:37 Blood Pressure 173/104 H 06/29/23 07:37 Pulse Oximetry 98 06/29/23 07:37 Temperature 36.1 C L 06/29/23 07:37 Temperature Source Tympanic 06/29/23 07:37 Pulse 62 06/29/23 07:37 Respiratory Rate 16 06/29/23 07:47 Respiratory Effort Normal 06/29/23 07:47 Respiratory Depth Normal 06/29/23 07:47 Respiratory Pattern Normal 06/29/23 07:47 Blood Pressure 173/104 H 06/29/23 07:37 Blood Pressure Position Sitting 06/29/23 07:37 Pulse Oximetry 98 06/29/23 07:37 Oxygen Delivery Method Room Air 06/29/23 07:37 Oxygen Flow Rate 0 06/29/23 07:37 Pain Level 7 06/29/23 07:47 Medical Decision Making 52-year-old male with a history of hyperlipidemia, who has had chest pain off and on for the past 2 months, has seen cardiology and had a negative stress test and is being referred for a cardiac catheterization on July 07 per patient, no prior history of bypass or stents per patient, comes in with bilateral sharp chest pain and difficulty breathing starting this morning. Denies any fevers, no cough, no abdominal pain or nausea or vomiting, no diaphoresis. He is alert and oriented x 4 on arrival in no distress, denies any pain currently. He says the pain was in his bilateral chest in the mid axillary line, does state when he took a deep breath that seem to make the pain worse. He has clear lung sounds, no murmur, no JVD, no leg swelling or calf tenderness. Unclear etiology for his bilateral sharp pleuritic chest pain, will proceed with CBC, troponin, CMP, and CTA of the chest to evaluate for possible PE, pulmonary edema, and less likely pneumothorax. No tearing back pain and equal peripheral pulses so doubt dissection. Patient pain-free, CTA and labs all unremarkable, will obtain delta troponin. Discussed if negative to second troponin likely discharge and will proceed with his cath next week. Patient is asymptomatic and delta troponin negative, stable for discharge, advised to follow-up with his dining room tables set up attendant and primary care provider, return precautions given Differential Diagnosis Differential Diagnosis: NSTEMI, PE, pleurisy Medical Records Medical records reviewed: Yes I reviewed the patient's medical records. Imaging Data Radiologic Study: Attestation: I personally reviewed and interpreted this imaging study as follows: Imaging: CT Scan Radiologist's impression: EXAM: CT CHEST PE CTA CLINICAL HISTORY: pleuritic chest pain, dyspnea. TECHNIQUE: Imaging Protocol: CT angiography of the chest was performed using pulmonary embolus protocol. Multi planar reconstructions were performed. CONTRAST MATERIAL: Intravenous: Omnipaque 350 Contrast volume: 100 cc COMPARISON: CT CT ABDOMEN PELVIS W from 11/13/2022 CT,NM,TMT NM MPI REST STRESS GRP from 06/14/2023 FINDINGS: CHEST: PULMONARY ARTERIES: There are no intraluminal filling defects to suggest acute pulmonary emboli. LUNGS: There are no infiltrates nor evidence of pulmonary infarction.. There are no pleural effusions. MEDIASTINUM: There is no hilar nor mediastinal adenopathy. Visualized thyroid unremarkable. CARDIAC: Heart size is upper normal. There is no pericardial effusion.Caliber of the thoracic aorta is within normal limits. No evidence of aortic dissection. There is no significant shift of the interventricular septum. PARTIALLY VISUALIZED UPPERMOST ABDOMEN: No obvious findings OSSEOUS: No significant osseous lesions.. IMPRESSION: 1. No evidence of acute pulmonary emboli. No evidence of pulmonary infarction.No infiltrates nor pleural effusions. 2. No evidence of aortic dissection nor pericardial effusion. Lab Data Lab results reviewed: Yes I reviewed the patient's lab results. ECG Data Attestation: I personally reviewed and interpreted this ECG (s) as follows: Prior ECG tracings: available for review Interpretation: Sinus rhythm, rate of 63, FL 173, no STEMI Quality:SDOH Health Related Social Needs: No Data to Display [facility] All Active Problems (Updated 06/29/23 @ 09:18 by Derrek Rodriguez MD) Chest pain (Acute) Hypertension (Chronic) CAD (coronary artery disease) (Chronic) Right rotator cuff tendonitis (Acute) Biceps tendinitis of right upper extremity (Acute) Bursitis of right shoulder (Acute) Hearing loss (Acute) Right shoulder pain (Acute) Trigger finger, left middle finger (Acute) Pes anserine bursitis (Acute) Tendinitis of left quadriceps tendon (Acute) Left knee pain (Acute) Chondromalacia of patella, right (Acute) Knee pain, bilateral (Acute) Hyperlipidemia (Acute) Family history of myocardial infarction in first degree male relative (Acute) H/O retrosternal chest pain (Acute) Insomnia (Acute) Elevated LDL cholesterol level (Acute) Erectile dysfunction (Acute) Dysplastic nevus (Acute) Cutaneous skin tags (Acute) Seborrheic keratoses (Acute) Screening for colon cancer (Acute) Asthma, mild (Acute) Anxiety (Chronic) Surgical History Complex tear of medial meniscus of right knee S/P right knee arthroscopy with partial medial meniscectomy: 05/27/2021 History of vasectomy Hx of inguinal hernia surgery Family History Mother No problems noted. Father , age 84 Liver cancer Diabetes Brother Alcohol abuse Heart disease Brother Hypertension Son No problems noted. Son No problems noted. Social History Smoking/Tobacco Use Status: Former Tobacco Use Quit Date: 03/29/01 Tobacco: How many years used: 5 Second Hand Exposure: No Smoking risk assessment performed?: Yes Alcohol Intake: current Alcohol Intake frequency: holidays/special occasions only Alcohol type: beer Drug use: Rarely Substance use type: marijuana Details: edible, last used one week ago. Caregiver/Support person: No Household members: spouse and children Housing: house Communication Needs: None Do you need help understanding health information?: Never Pets and animals: Yes Pets and animals: dog(s) Sexually active: Yes Do you think of yourself as: straight/heterosexual Current gender identity: male What is your relationship status?: How often do you talk on the phone with friends or family?: once per week How often do you get together with friends or relatives?: once per week How often do you attend zoroastrian or methodist services?: decline to answer Do you belong to any clubs or organized social groups?: no Panel score (0-1 are the most socially isolated patients): 1 What type of physical activity do you participate in: running Duration: < 15 minutes/day Frequency: 1-2 times per week Loraine/Protestant: None Special loraine needs: No Seatbelt use: always Helmet use: Yes Helmet use: always Drive intox or ride w/intox experienced truck driver: No Do you feel safe at home: Yes Do you feel safe in your relationship?: Yes
[2023-06-29 08:20] LABS: Abs Immature Grans 0.02 10^3/uL (0.0-0.06); Absolute Basophil Count 0.05 10^3/uL (0.0-0.2); Absolute Eosinophil Count 0.28 10^3/uL (0.0-0.7); Absolute Lymphocyte Count 2.64 10^3/uL (1.2-3.4); Absolute Monocyte Count 0.66 10^3/uL (0.1-0.8); Absolute Neutrophil Count 3.42 10^3/uL (1.2-6.7); Basophils % 0.7; HCT 43.7 % (40.0-50.0); HGB 14.9 g/dL (13.5-17.5); Immature Grans % 0.3; Lymphocytes % 37.3; MCH 29.2 pg (27.0-33.0); MCHC 34.1 % (32.0-36.0); MCV 86 fL (80-95); MPV 9.3 fL (8.0-11.0); Monocytes % 9.3; Neutrophils % 48.4; Platelet Count 249 10^3/uL (130-400); RDW 11.6 % (11.8-14.1); RDW-SD 36.4 fL; WBC 7.07 10^3/uL (4.4-10.8)
[2023-06-29] MEDS: Normal Saline - Diluent 50 ML VIAL IJ (08:23)
[2023-06-29] MEDS: Omnipaque 350 MG/ML 500 ML BTL-Imaging package 100 ML IJ (08:23)
[2023-06-29 08:32] LABS: Prothrombin Time 10.4 sec (9.1-11.1)
[2023-06-29 08:42] LABS: ALT 40 U/L (16-63); AST 15 U/L (15-37); Albumin 3.8 g/dL (3.4-5.0); Alkaline Phosphatase 64 U/L (46-116); Anion Gap 10.2 mmol/L (3-11); BUN 12 mg/dL (7-18); Bilirubin, Total 0.4 mg/dL (0.2-1.0); CO2 25.8 mmol/L (21.0-32.0); CREATININE 0.9 mg/dL (0.70-1.30); Calcium 9.8 mg/dL (8.5-10.1); Chloride 107 mmol/L (98-107); Estimated GFR 102.12 (mL/min/1.73m2); Glucose 98 mg/dL (74-106); Lipase 56 U/L (16-77); Magnesium 2.1 mg/dL (1.8-2.4); NT-proBNP 12 pg/mL (<300); Potassium 4.1 mmol/L (3.5-5.1); Sodium 143 mmol/L (136-145); Total Protein 7.5 g/dL (6.4-8.2); Troponin I < 50 ng/L (< or =60)
[2023-06-29 08:47] LABS: COVID-19 PCR Negative (Negative)
[2023-06-29 08:48] LABS: Source Nasopharynx
[2023-06-29 11:30] LABS: Troponin I < 50 ng/L (< or =60)
[2023-06-29 11:56] VITALS: BP 129/73; PULSE 58; RESP 16; O2SAT 97
== END 2023-06-29 12:03 | disposition home or self-care (01) ==
PROVIDERS: Emergency Provider Emergency Medicine; PCP Family Medicine
DX: R07.9 Chest pain, unspecified (principal); I10 Essential (primary) hypertension; E78.5 Hyperlipidemia, unspecified; I25.10 Atherosclerotic heart disease of native coronary artery without angina pectoris; Z79.82 Long term (current) use of aspirin; Z87.891 Personal history of nicotine dependence
CPT/HCPCS: 36415; 71275; 80053; 83690; 87635; 93005; 99285; 83735; 83880; 84484; 85025; 85610; 85730; 93010; 99284

== ENCOUNTER 2023-07-26 11:00 | Outpatient (RCR) | payer BC, SELFPAY | END 2023-07-27 23:59 | disposition home or self-care (01) | LOC: CR 11:00 | PROVIDERS: PCP Family Medicine; Visit Provider Internal Medicine Cardiovascular Disease | DX: I25.119 Atherosclerotic heart disease of native coronary artery with unspecified angina pectoris (principal); Z51.89 Encounter for other specified aftercare | CPT/HCPCS: S9472 ==

== ENCOUNTER 2023-08-13 10:54 | Emergency (ER) | payer BC, SELFPAY ==
[2023-08-13 11:08] VITALS: BP 130/85; PULSE 67; RESP 16; TEMP 36.5; O2SAT 97
--- NOTE | 2023-08-13 11:30 | RT.EKG_ITS ---
APPROVED REPORT Exam: Resting ECG Reason for Exam: weakness Patient Location: E HR:51 bpm ECG Measurements Heart Rate 51 AXIS [place] 178 P 38 QRSd 91 QRS 48 QT 422 T 33 QTc 389 Conclusion Sinus bradycardia...rate< 60
[2023-08-13 12:27] LABS: Abs Immature Grans 0.01 10^3/uL (0.0-0.06); Absolute Basophil Count 0.03 10^3/uL (0.0-0.2); Absolute Eosinophil Count 0.13 10^3/uL (0.0-0.7); Absolute Lymphocyte Count 2.12 10^3/uL (1.2-3.4); Absolute Monocyte Count 0.54 10^3/uL (0.1-0.8); Absolute Neutrophil Count 2.52 10^3/uL (1.2-6.7); Basophils % 0.6 %; Eosinophils % 2.4 %; HCT 44.8 % (40.0-50.0); Immature Grans % 0.2 %; Lymphocytes % 39.6 %; MCH 28.9 pg (27.0-33.0); MCHC 33.5 % (32.0-36.0); MCV 86 fL (80-95); MPV 9.9 fL (8.0-11.0); Monocytes % 10.1 %; Neutrophils % 47.1 %; Platelet Count 211 10^3/uL (130-400); RBC 5.19 10^6/uL (4.36-5.78); RDW 11.7 % (11.8-14.1); RDW-SD 37.2 fL; WBC 5.35 10^3/uL (4.4-10.8)
[2023-08-13 12:45] LABS: ALT 40 U/L (16-63); AST 19 U/L (15-37); Albumin 3.9 g/dL (3.4-5.0); Alkaline Phosphatase 68 U/L (46-116); BUN 11 mg/dL (7-18); Bilirubin, Total 0.4 mg/dL (0.2-1.0); CREATININE 0.7 mg/dL (0.70-1.30); Calcium 9.1 mg/dL (8.5-10.1); Chloride 107 mmol/L (98-107); Estimated GFR 110.18 (mL/min/1.73m2); Glucose 92 mg/dL (74-106); Magnesium 2.2 mg/dL (1.8-2.4); Potassium 4.2 mmol/L (3.5-5.1); Sodium 140 mmol/L (136-145); Total Protein 7.5 g/dL (6.4-8.2); Troponin I < 50 ng/L (< or =60)
--- NOTE | 2023-08-13 12:52 | ED.GENADUL_ITS ---
Discharge Plan Disposition Patient Disposition: Against Medical Advice Discharge Details Clinical Impression: Feeling of chest tightness Primary Care Provider: Maikel Garces ED Provider: Home Ching Home Meds and New Rx's Prescriptions: No Action aspirin 81 mg tablet,delayed release (DR/EC) 81 mg PO DAILY Qty: 90 3RF amlodipine 5 mg tablet 5 mg PO DAILY Qty: 30 2RF metoprolol succinate 25 mg tablet extended release 24 hr 25 mg PO DAILY Qty: 30 8RF (DME) Aerochamber MV Spacer See Rx Instructions .ROUTE .MEDSUPPLY Qty: 1 0RF Rx Instructions: As directed albuterol sulfate [Ventolin HFA] 90 mcg/actuation HFA aerosol inhaler 2 puff IH Q4H PRN (Reason: shortness of breath or wheezing) Qty: 8.5 0RF acetaminophen 500 mg capsule 1,000 mg PO Q8H PRN PRNQty: 30 0RF prasugrel 10 mg tablet 10 mg PO DAILY Patient Comments: TAKE ONE TABLET BY MOUTH EVERY DAY nitroglycerin 0.3 mg tablet, sublingual 0.3 mg sublingual PRN Patient Comments: PLACE 1 TABLET UNDER TONGUE EVERY 5 MINUTES FOR UP TO 3 DOSES NEEDED FOR CHEST PAIN. IF PAIN PERSISTS CONTACT 911 Discharge Instructions Instructions: Against Medical Advice (ED) Additional Instructions: You sought care today in the Emergency Department for chest discomfort that occurred last night and again this morning and concern for potential toxic exposure. Initial diagnostic workup did not reveal a cause for your symptoms. Initial cardiac enzyme and electrolytes were normal. Your EKG revealed sinus bradycardia with a heart rate of 51 bpm. It was recommended that you have additional diagnostic testing to assess for life-threatening or lifestyle modifying disease. You have provided informed refusal of this recommended testing. Please return to the emergency department at any time should you wish to pursue further diagnostic workup. Please follow-up with your primary care physician. Please be sure to discuss follow-up testing with your primary care physician and [facility] underwriter. Referrals: Maikel Garces MD [Primary Care Provider] - Discharge Data Discharge Date/Time-TO BE ENTERED AT DEPARTURE: 08/13/23 13:11 HPI General Mode of arrival: ambulatory . Date/Time Provider Initiated Documentation: 08/13/23 11:42 . Limitations to Documentation: no limitations . Information obtained by: patient . HPI Narrative: 52-year-old male presents with chief complaint of chest discomfort. Patient notes sensation of chest tightness that occurred last night and then again this morning. He has no chest discomfort at this time. Patient notes specific conc claire regarding exposure to hydrofluoric acid fumes. 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 He also notes some mild dermal exposure to his left forearm. Of note, patient did have cardiac stent placed early June. He was concerned that chest discomfort did feel like his angina and took nitroglycerin today which did help his pain. Related Data Home Medications Medication Instructions Recorded Confirmed inhalational spacing device #1 ea 06/29/19 08/13/23 (Aerochamber MV spacer) acetaminophen 500 mg capsule 1,000 mg (2 x 500 mg) PO Q8H PRN 05/27/21 08/13/23 PRN #30 caps albuterol sulfate 90 mcg/actuation 2 puff inhalation Q4H PRN 05/25/23 08/13/23 aerosol inhaler (Ventolin HFA) shortness of breath or wheezing #8.5 grams amlodipine 5 mg tablet 5 mg PO DAILY #30 tabs 06/08/23 08/13/23 aspirin 81 mg tablet,delayed 81 mg PO DAILY #90 tabs 06/08/23 08/13/23 release metoprolol succinate 25 mg 25 mg PO DAILY #30 tabs 06/22/23 08/13/23 tablet,extended release 24 hr nitroglycerin 0.3 mg sublingual 0.3 mg sublingual PRN 08/13/23 08/13/23 tablet prasugrel 10 mg tablet 10 mg PO DAILY 08/13/23 08/13/23 Previous Rx's Medication Instructions Recorded inhalational spacing device #1 ea 06/29/19 (Aerochamber MV spacer) acetaminophen 500 mg capsule 1,000 mg (2 x 500 mg) PO Q8H PRN 05/27/21 PRN #30 caps albuterol sulfate 90 mcg/actuation 2 puff inhalation Q4H PRN 05/25/23 aerosol inhaler (Ventolin HFA) shortness of breath or wheezing #8.5 grams amlodipine 5 mg tablet 5 mg PO DAILY #30 tabs 06/08/23 aspirin 81 mg tablet,delayed 81 mg PO DAILY #90 tabs 06/08/23 release metoprolol succinate 25 mg 25 mg PO DAILY #30 tabs 06/22/23 tablet,extended release 24 hr Allergies Allergy/AdvReac Type Severity Reaction Status Date / Time procaine [From Novocain] Allergy Mild Other (See Verified 08/13/23 11:15 Comment) animal dander Allergy Other (See Uncoded 08/13/23 11:15 Comment) General Stated Complaint: ChemExpose DARIA: 3 Review of Systems All systems reviewed & are unremarkable except as noted in HPI and below Cardiovascular Cardiovascular: Reports as per HPI and Denies palpitations Respiratory Respiratory: Reports as per HPI and Denies cough Endocrine Endocrine: Denies palpitations Exam Const General: cooperative and no acute distress HENMT Mouth: moist mucous membranes Eyes Conjunctivae: normal conjunctivae Sclera: normal sclerae Resp Auscultation: clear to auscultation bilaterally, no rales, no rhonchi and no wheezes Cardio Rate: regular rate and not tachycardic Rhythm: regular rhythm GI Palpation: soft, not firm, no guarding, no masses, not rigid and nontender Skin General skin exam: no rashes or lesions noted Other: No inflammation left forearm Neuro General: patient alert, patient awake, patient oriented x3 and tone normal Extrem General: no edema Psych Appearance: grossly normal Mental Status: mental status grossly normal Course Vital Signs Vital signs: Vital Signs Temperature 36.5 C 08/13/23 11:08 Pulse 67 08/13/23 11:08 Respiratory Rate 16 08/13/23 11:08 Blood Pressure 130/85 08/13/23 11:08 Pulse Oximetry 97 08/13/23 11:08 Temperature 36.5 C 08/13/23 11:08 Temperature Source Temporal Artery Scan 08/13/23 11:08 Pulse 67 08/13/23 11:08 Respiratory Rate 16 08/13/23 11:08 Respiratory Effort Normal, Non-Labored 08/13/23 11:15 Blood Pressure 130/85 08/13/23 11:08 Blood Pressure Position Sitting 08/13/23 11:08 Pulse Oximetry 97 08/13/23 11:08 Oxygen Delivery Method Room Air 08/13/23 11:08 Oxygen Flow Rate 0 08/13/23 11:08 Pain Level 2 08/13/23 11:08 Lab/Test Results Lab/Test Results: Laboratory Tests Range/Units 08/13/23 12:20 WBC (4.4-10.8) 10^3/uL 5.35 RBC (4.36-5.78) 10^6/uL 5.19 Hgb (13.5-17.5) g/dL 15.0 Hct (40.0-50.0) % 44.8 MCV (80-95) fL 86 MCH (27.0-33.0) pg 28.9 MCHC (32.0-36.0) % 33.5 RDW (11.8-14.1) % 11.7 L Plt Count (130-400) 10^3/uL 211 MPV (8.0-11.0) fL 9.9 Immature Gran % % 0.2 Neutrophils % % 47.1 Lymphocytes % % 39.6 Monocytes % % 10.1 Eosinophils % % 2.4 Basophils % % 0.6 Nucleated RBC % (0.0-0.3) % 0.0 Absolute Neutrophils (1.2-6.7) 10^3/uL 2.52 Absolute Lymphocytes (1.2-3.4) 10^3/uL 2.12 Absolute Monocytes (0.1-0.8) 10^3/uL 0.54 Absolute Eosinophils (0.0-0.7) 10^3/uL 0.13 Absolute Basophils (0.0-0.2) 10^3/uL 0.03 Sodium (136-145) mmol/L 140 Potassium (3.5-5.1) mmol/L 4.2 Chloride (98-107) mmol/L 107 Carbon Dioxide (21.0-32.0) mmol/L 26.0 Anion Gap (3-11) mmol/L 7.0 BUN (7-18) mg/dL 11 Creatinine (0.70-1.30) mg/dL 0.7 Est GFR (CKD-EPI 2020) (mL/min/1.73m2) 110.18 Glucose (74-106) mg/dL 92 Calcium (8.5-10.1) mg/dL 9.1 Magnesium (1.8-2.4) mg/dL 2.2 Total Bilirubin (0.2-1.0) mg/dL 0.4 AST (15-37) U/L 19 ALT (16-63) U/L 40 Alkaline Phosphatase (46-116) U/L 68 Troponin I (< or =60) ng/L < 50 Total Protein (6.4-8.2) g/dL 7.5 Albumin (3.4-5.0) g/dL 3.9 Medical Decision Making 52-year-old male with history of coronary artery disease status post stent placement, here with intermittent chest discomfort since last night. Pain did seem to respond to nitroglycerin sublingual. Patient also concerned with potential exposure to hydrofluoric acid fumes. Considered ACS. EKG was reviewed and interpreted by me: Please report, sinus bradycardia 51 bpm, no STEMI. Initial troponin negative. Considered hydrofluoric acid toxicity -- Electrolytes within normal limits. I recommended chest x-ray and patient provided informed refusal. I recommended repeat troponin and further diagnostics and patient provided informed refusal and left against medical advice. Lab Data Lab results reviewed: Yes I reviewed the patient's lab results. Labs: Laboratory Tests Range/Units 08/13/23 08/13/23 12:20 15:00 WBC (4.4-10.8) 10^3/uL 5.35 RBC (4.36-5.78) 10^6/uL 5.19 Hgb (13.5-17.5) g/dL 15.0 Hct (40.0-50.0) % 44.8 MCV (80-95) fL 86 MCH (27.0-33.0) pg 28.9 MCHC (32.0-36.0) % 33.5 RDW (11.8-14.1) % 11.7 L Plt Count (130-400) 10^3/uL 211 MPV (8.0-11.0) fL 9.9 Immature Gran % % 0.2 Neutrophils % % 47.1 Lymphocytes % % 39.6 Monocytes % % 10.1 Eosinophils % % 2.4 Basophils % % 0.6 Nucleated RBC % (0.0-0.3) % 0.0 Absolute Neutrophils (1.2-6.7) 10^3/uL 2.52 Absolute Lymphocytes (1.2-3.4) 10^3/uL 2.12 Absolute Monocytes (0.1-0.8) 10^3/uL 0.54 Absolute Eosinophils (0.0-0.7) 10^3/uL 0.13 Absolute Basophils (0.0-0.2) 10^3/uL 0.03 Sodium (136-145) mmol/L 140 Potassium (3.5-5.1) mmol/L 4.2 Chloride (98-107) mmol/L 107 Carbon Dioxide (21.0-32.0) mmol/L 26.0 Anion Gap (3-11) mmol/L 7.0 BUN (7-18) mg/dL 11 Creatinine (0.70-1.30) mg/dL 0.7 Est GFR (CKD-EPI 2020) (mL/min/1.73m2) 110.18 Glucose (74-106) mg/dL 92 Calcium (8.5-10.1) mg/dL 9.1 Magnesium (1.8-2.4) mg/dL 2.2 Total Bilirubin (0.2-1.0) mg/dL 0.4 AST (15-37) U/L 19 ALT (16-63) U/L 40 Alkaline Phosphatase (46-116) U/L 68 Troponin I (< or =60) ng/L < 50 Cancelled Total Protein (6.4-8.2) g/dL 7.5 Albumin (3.4-5.0) g/dL 3.9 Quality:SDOH Health Related Social Needs: No Data to Display PFSH All Active Problems (Updated 08/13/23 @ 12:57 by Home Ching MD) Feeling of chest tightness (Acute) Hypertension (Chronic) CAD (coronary artery disease) (Chronic) s/p stent to LAD (80%) 07/20 Right rotator cuff tendonitis (Acute) Biceps tendinitis of right upper extremity (Acute) Bursitis of right shoulder (Acute) Hearing loss (Acute) Right shoulder pain (Acute) Trigger finger, left middle finger (Acute) Pes anserine bursitis (Acute) Tendinitis of left quadriceps tendon (Acute) Left knee pain (Acute) Chondromalacia of patella, right (Acute) Knee pain, bilateral (Acute) Hyperlipidemia (Acute) Family history of myocardial infarction in first degree male relative (Acute) H/O retrosternal chest pain (Acute) Insomnia (Acute) Elevated LDL cholesterol level (Acute) Erectile dysfunction (Acute) Dysplastic nevus (Acute) Cutaneous skin tags (Acute) Seborrheic keratoses (Acute) Screening for colon cancer (Acute) Asthma, mild (Acute) Anxiety (Chronic) Surgical History Complex tear of medial meniscus of right knee S/P right knee arthroscopy with partial medial meniscectomy: 05/27/2021 History of vasectomy Hx of inguinal hernia surgery Family History Mother No problems noted. Father , age 84 Liver cancer Diabetes Brother Alcohol abuse Heart disease Brother Hypertension Son No problems noted. Son No problems noted. Social History Smoking/Tobacco Use Status: Former Tobacco Use Quit Date: 03/29/01 Tobacco: How many years used: 5 Second Hand Exposure: No Smoking risk assessment performed?: Yes Alcohol Intake: current Alcohol Intake frequency: holidays/special occasions only Alcohol type: beer Drug use: Rarely Substance use type: marijuana Details: edible, last used one week ago. Caregiver/Support person: No Household members: spouse and children Housing: house Communication Needs: None Do you need help understanding health information?: Never Pets and animals: Yes Pets and animals: dog(s) Sexually active: Yes Do you think of yourself as: straight/heterosexual Current gender identity: male What is your relationship status?: How often do you talk on the phone with friends or family?: once per week How often do you get together with friends or relatives?: once per week How often do you attend nondenominational or episcopal services?: decline to answer Do you belong to any clubs or organized social groups?: no Panel score (0-1 are the most socially isolated patients): 1 What type of physical activity do you participate in: running Duration: < 15 minutes/day Frequency: 1-2 times per week Loraine/Judaism: None Special loraine needs: No Seatbelt use: always Helmet use: Yes Helmet use: always Drive intox or ride w/intox 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
[2023-08-13 13:08] VITALS: BP 122/85; PULSE 52; RESP 16; O2SAT 100
== END 2023-08-13 13:11 | disposition left against medical advice (07) ==
PROVIDERS: Emergency Provider Student in an Organized Health Care Education/Training Program; PCP Family Medicine
DX: R07.89 Other chest pain (principal); I25.10 Atherosclerotic heart disease of native coronary artery without angina pectoris; R00.1 Bradycardia, unspecified; Z95.5 Presence of coronary angioplasty implant and graft; Z79.82 Long term (current) use of aspirin; Z87.891 Personal history of nicotine dependence; Z53.29 Procedure and treatment not carried out because of patient's decision for other reasons
CPT/HCPCS: 36415; 80053; 93005; 99284; 83735; 84484; 85025; 93010; 99283

== ENCOUNTER 2023-09-23 01:58 | Outpatient (CLI) | payer BC, SELFPAY ==
[2023-09-23 07:44] LABS: Hemoglobin A1C 5.4 % (<5.7)
[2023-09-27 17:15] LABS: Apolipoprotein B, Serum 103 mg/dL; Beta VLDL Cholesterol Not Detected mg/dL (<15); Beta VLDL Triglycerides Not Detected mg/dL (<15); Cholesterol, Total, CDC 184 mg/dL; Chylomicron Cholesterol Not Detected; Chylomicron Triglycerides Not Detected; HDL Cholesterol, CDC 32 mg/dL (>=40); LDL Cholesterol 132 mg/dL; LDL Triglycerides 37 mg/dL (<=50); Lp(a) Cholesterol <5 mg/dL (<5); LpX Not detected; Triglycerides, CDC 145 mg/dL; VLDL Cholesterol 20 mg/dL (<30); VLDL Triglycerides 92 mg/dL (<120)
== END 2023-09-23 01:59 | disposition home or self-care (01) ==
LOC: LBO 01:58
PROVIDERS: PCP Family Medicine; Visit Provider Family Medicine
DX: E78.5 Hyperlipidemia, unspecified (principal); Z82.49 Family history of ischemic heart disease and other diseases of the circulatory system; I25.119 Atherosclerotic heart disease of native coronary artery with unspecified angina pectoris
CPT/HCPCS: 36415; 80061; 82172; 82664; 83036

== ENCOUNTER 2024-03-08 02:56 | Outpatient (CLI) | payer BC, SELFPAY ==
[2024-03-08 09:19] LABS: AST 19 U/L (15-37)
[2024-03-13 17:58] LABS: Apolipoprotein B, Serum 58 mg/dL; Beta VLDL Cholesterol Not Detected mg/dL (<15); Beta VLDL Triglycerides Not Detected mg/dL (<15); Cholesterol, Total, CDC 124 mg/dL; Chylomicron Cholesterol Not Detected; Chylomicron Triglycerides Not Detected; HDL Cholesterol, CDC 35 mg/dL (>=40); LDL Cholesterol 66 mg/dL; LDL Triglycerides 20 mg/dL (<=50); Lp(a) Cholesterol <5 mg/dL (<5); LpX Not detected; Triglycerides, CDC 93 mg/dL; VLDL Cholesterol 23 mg/dL (<30); VLDL Triglycerides 58 mg/dL (<120)
== END 2024-03-08 02:57 | disposition home or self-care (01) ==
PROVIDERS: PCP Family Medicine; Visit Provider Family Medicine
DX: E78.5 Hyperlipidemia, unspecified (principal); Z51.81 Encounter for therapeutic drug level monitoring
CPT/HCPCS: 36415; 80061; 82172; 82664; 84450

== ENCOUNTER 2024-10-10 08:10 | Outpatient (CLI) | payer BC, SELFPAY ==
[2024-10-16 17:39] LABS: Apolipoprotein B, Serum 57 mg/dL; Beta VLDL Cholesterol Not Detected mg/dL (<15); Beta VLDL Triglycerides Not Detected mg/dL (<15); Cholesterol, Total, CDC 124 mg/dL; Chylomicron Cholesterol Not Detected; Chylomicron Triglycerides Not Detected; HDL Cholesterol, CDC 39 mg/dL (>=40); LpX Not detected; Triglycerides, CDC 127 mg/dL; VLDL Triglycerides 81 mg/dL (<120)
== END 2024-10-10 08:11 | disposition home or self-care (01) ==
PROVIDERS: PCP Family Medicine; Visit Provider Family Medicine
DX: E78.5 Hyperlipidemia, unspecified (principal); I25.119 Atherosclerotic heart disease of native coronary artery with unspecified angina pectoris
CPT/HCPCS: 36415; 80061; 82172; 82664

== ENCOUNTER 2025-03-09 07:44 | Outpatient (CLI) | payer BC, SELFPAY ==
[2025-03-09 18:00] LABS: PSA, Screening 0.7 ng/mL (<=3.5)
== END 2025-03-09 07:45 | disposition home or self-care (01) ==
LOC: LBO 07:44
PROVIDERS: PCP Family Medicine; Visit Provider Family Medicine
DX: Z12.5 Encounter for screening for malignant neoplasm of prostate (principal); I10 Essential (primary) hypertension
CPT/HCPCS: 36415; 84153; 82565